=== PATIENT | female | born 1940 | race Caucasian/White ===

== ENCOUNTER 2018-06-25 02:15 | Emergency (ER) | payer MEDICARE ==
[~2018-06-25] VITALS: Ht 170.2 cm; Wt 82.6 kg
[~2018-06-25 02:15] MED LIST: ALENDRONATE SOD70 MG PO; ASPIRIN81 M2 PO; BUDESONIDE; DAPSONE PO; DAPSONE25 MG PO; DEXTROMETHORPHAN HBR; DITROPAN5 MG PO; FERROUS SULFAT325 MG PO; FOLIC ACID1 MG PO; GABAPENTIN300 MG PO; HYDROXYCHLOROQ200 MG PO; LEVOXYL88 MCG PO; MACRODANTIN100 MG PO; MOMETASONE FUROATE; MONTELUKAST SOD10 MG PO; MYRBETRIQ50 MG PO; NAPROXEN250 MG PO; OMACOR1 GM PO; PANTOPRAZOLE SO40 MG PO; PAXIL40 MG PO; PROAIR HFA8.5 G1; THEOPHYLLINE A200 M1 PO; ULTRAM50 MG PO; Z SINGULAIR PO; Z.0.CRESTOR5 MG PO; Z.0.FOLIC ACID1 MG PO; Z.0.NEXIUM40 MG PO; Z.0.PAROXETINE HCL20 PO; Z.0.PREDNISONE5 MG PO; Z.1.LEVOTHYROXINE100 PO
[2018-06-25 02:38] LABS: BASOPHILS # (AUTO) 0.1 (0.0-0.1); BASOPHILS % 0.7 % (0.0-1.0); EOSINOPHILS # (AUTO) 0.3 (0.0-0.4); EOSINOPHILS % 3.2 % (0.0-6.0); HEMATOCRIT 34.4 % (34.2-44.1); HEMOGLOBIN 11.5 g/dL (12.0-16.0); LYMPHOCYTES # (AUTO) 2.6 (1.0-3.2); LYMPHOCYTES % 25.4 % (18.0-39.1); MEAN CORPUSCULAR HEMOGLOBIN 30.3 pg (28-32); MEAN CORPUSCULAR HGB CONC 33.4 g/dL (31-35); MEAN CORPUSCULAR VOLUME 90.8 fL (81-99); MONOCYTES # (AUTO) 0.8 (0.2-0.8); MONOCYTES % 7.5 % (4.4-11.3); NEUTROPHILS # (AUTO) 6.3 (2.1-6.9); NEUTROPHILS % 62.8 % (38.7-80.0); PLATELET COUNT 351 x10e3/uL (140-360); RED BLOOD COUNT 3.79 x10e6/uL (3.6-5.1); RED CELL DISTRIBUTION WIDTH 12.3 % (11.7-14.4)
[2018-06-25 02:45] LABS: COLOR,URINE YELLOW (YELLOW)
[2018-06-25 02:46] LABS: BILIRUBIN,URINE NEGATIVE (NEGATIVE); CLARITY,URINE SL CLOUDY (CLEAR); KETONES,URINE NEGATIVE (NEGATIVE); LEUKOCYTE ESTERASE ,URINE 2+ (NEGATIVE); NITRITE,URINE POSITIVE (NEGATIVE); PROTEIN,URINE DIPSTICK 1+ (NEGATIVE); URINE UROBILINOGEN 0.2 mg/dL (0.2 - 1)
[2018-06-25 03:01] LABS: BACTERIA,URINE MANY /HPF; EPITHELIAL CELLS,URINE FEW /LPF; WBC,URINE (MAN) >50 /HPF (0-5)
[2018-06-25 03:02] LABS: ALANINE AMINOTRANSFERASE 12 IU/L (0-55); ALBUMIN 3.3 g/dL (3.5-5.0); ALBUMIN/GLOBULIN RATIO 0.8 (0.8-2.0); ALKALINE PHOSPHATASE 71 IU/L (40-150); ANION GAP 15.3 mmol/L (8-16); BLOOD UREA NITROGEN 13 mg/dL (7-26); BUN/CREATININE RATIO 17 (6-25); CARBON DIOXIDE 28 mmol/L (22-29); CHLORIDE 94 mmol/L (98-107); CREATININE, SERUM 0.78 mg/dL (0.57-1.11); EST GLOMERULAR FILTRATION RATE > 60 ML/MIN (60-); GLUCOSE 93 mg/dL (74-118); POTASSIUM 4.3 mmol/L (3.5-5.1); RBC,URINE 0-5 /HPF (0-5); SODIUM 133 mmol/L (136-145)
[2018-06-25] MEDS ORDERED: CEFTRIAXONE SOD 1 GM VIAL IV ONE (03:15)
[2018-06-25] MEDS ORDERED: DIPHENHYDRAMINE HCL 25 MG CAP PO ONE (03:30)
--- NOTE | 2018-06-25 03:31 | Diagnostic Imaging Report ---
EXAMINATION: CHEST SINGLE (PORTABLE) INDICATION: Weakness COMPARISON: 12/08/2017 FINDINGS: TUBES and LINES: None. LUNGS: Lungs are well inflated. Lungs are clear. There is no evidence of pneumonia or pulmonary edema. PLEURA: No pleural effusion or pneumothorax. HEART AND MEDIASTINUM: The cardiomediastinal silhouette is unremarkable. The aorta is tortuous with atherosclerotic calcifications. BONES AND SOFT TISSUES: No acute osseous lesion. Stable bilateral glenohumeral and acromioclavicular degenerative changes Soft tissues are unremarkable. UPPER ABDOMEN: No free air under the diaphragm. IMPRESSION: No acute thoracic abnormality. Signed by: Dr. Augustin Dick M.D. on 06/25/2018 3:26 AM
[2018-06-25 03:42] VITALS: BP 109/51
[2018-06-25] MEDS ORDERED: CEFDINIR300 MG PO (03:42)
[2018-06-25] MEDS ORDERED: ZOFRAN ODT4 MG SL (03:42)
== END 2018-06-25 04:20 | disposition home or self-care (01) ==
LOC: ER 02:15
DX: N30.90 Cystitis, unspecified without hematuria (principal); R53.83 Other fatigue
CPT/HCPCS: 36415; 71045; 80053; 81001; 85025; 87086; 87186; 96374; 99284; J0696